=== PATIENT | female | born 1935 | race Caucasian/White ===

== ENCOUNTER 2020-12-18 08:38 | Outpatient (CLI) | payer MEDICARE, BC, SELFPAY ==
--- NOTE | ~2020-12-18 | XR_ITS ---
XR chest 2V 12/18/2020 09:02 Indication: Bilateral lung opacities. Partially collapsed lung. Procedure: PA and lateral views of the chest Comparison: Comparison to multiple prior studies sequentially, with oldest reviewed study dated 10/20. Findings: There is chronic atelectasis/scarring of the right middle lobe. No acute focal pneumonia, e oskar or effusion. Heart size normal. No pneumothorax. No acute osseous abnormality. Impression: 1: Chronic right middle lobe atelectasis/scarring. Reviewed, dictated and finalized at location B. Impression: 1: Chronic right middle lobe atelectasis/scarring.
== END 2020-12-18 08:39 | disposition home or self-care (01) ==
LOC: ANHIMG 08:47
PROVIDERS: PCP Internal Medicine; Visit Provider Internal Medicine
DX: R91.8 Other nonspecific abnormal finding of lung field (principal); J98.11 Atelectasis
CPT/HCPCS: 71046

== ENCOUNTER 2021-04-22 09:12 | Outpatient (CLI) | payer MEDICARE, BC, SELFPAY ==
--- NOTE | ~2021-04-22 | DEXA_ITS ---
Bone Density Report Name: Carleen Cartwright Age: 86 Sex: Female Ethnicity: White Date of : 1935 Indication: postmenopausal; Referring Provider: ADRIAN, FAZAL Gray Study: Bone densitometry was performed. Exam Date: April 22, 2021 Accession number: [id number] Bone Density: Region BMD T-score Z-score Classification AP Spine (L1-L4) 0.964 -0.8 2.1 Normal Femoral Neck (Left) 0.661 -1.7 0.8 Osteopenia Total Hip (Left) 0.854 -0.7 1.6 Normal Total Hip Bilateral Avg 0.871 -0.6 1.7 Normal Femoral Neck (Right) 0.640 -1.9 0.6 Osteopenia Total Hip (Right) 0.888 -0.4 1.8 Normal World Health Organization criteria for BMD impression classify patients as: Normal (T-score at or above -1.0), Osteopenia (T-score between -1.0 and -2.5), or Osteoporosis (T-score at or below -2.5). 10-year Fracture Risk(1): Major Osteoporotic Fracture 15% Hip Fracture 4.3% Reported Risk Factors: [place] (), Neck BMD=0.640, BMI=28.3 (1) FRAX(R) Version 3.08. Fracture probability calculated for an untreated patient. Fracture probability may be lower if the patient has received treatment. Clinical Information Provided by Patient: Has used the following medications: Vitamin D, Calcium Patient maximum height was 62 Menopause Age: 60 Drinks caffeinated beverages Onset of menses at age 16 Number of children 2 Impression: The patient has low bone mass, based on the Right Femoral Neck T-score. The patient has an estimated ten-year risk of hip fracture of 4.3% and an estimated ten-year risk of major fracture of 15%, based on the WHO FRAX algorithm. Discussion: BONE DENSITY IS LOW AT ONE OR MORE SKELETAL SITES. THE PATIENT'S BMD AND CLINICAL RISK FACTORS CONTRIBUTE TO THIS PATIENT'S INCREASED RISK OF FRACTURE. This patient's lowest T-score is low at one or more skeletal sites. It meets the World Health Organization's (WHO) criteria for ?low bone mass? (T-score between -1.0 and -2.5). The patient's 10-year risk of hip fracture as calculated by FRAX exceeds the threshold where pharmacological therapy is recommended by the National Osteoporosis Foundation (NOF). However, all treatment decisions require clinical judgment and consideration of individual patient factors, including patient preferences, comorbidities, previous drug use, risk factors not captured in the FRAX model (e.g., frailty, falls, vitamin D deficiency, increased bone turnover, interval significant decline in bone density) and possible under or overestimation of fracture risk by FRAX. The patient should follow a healthful lifestyle (good nutrition with adequate calcium and vitamin D, and appropriate weight-bearing exercise). Follow-Up: Consider a repeat BMD and Vertebral Fracture Assessment (VFA) exam in 2 years or sooner if medically necessary, to reassess this pat
== END 2021-04-22 09:13 | disposition home or self-care (01) ==
LOC: ANHIMG 09:16
PROVIDERS: PCP Internal Medicine; Visit Provider Internal Medicine
DX: Z78.0 Asymptomatic menopausal state (principal); M85.852 Other specified disorders of bone density and structure, left thigh; M85.851 Other specified disorders of bone density and structure, right thigh
CPT/HCPCS: 77080